=== PATIENT | female | born 1950 | race Caucasian/White ===

== ENCOUNTER 2018-12-23 00:02 | Emergency (ER) | payer SELFPAY ==
[~2018-12-23] VITALS: Ht 162.6 cm; Wt 65.0 kg
--- NOTE | 2018-12-23 00:14 | NUR ---
NIL X 1 WHEN CALLED FOR TRIAGE.
--- NOTE | 2018-12-23 00:45 | NUR ---
PT BACK TO ROOM
[2018-12-23] MEDS ORDERED: NITROGLYCERIN SINGLE TAB 0.4 MG SL PRN (01:00)
[2018-12-23] MEDS ORDERED: ACETAMINOPHEN 500 MG TABLET PO ONE (01:00)
[2018-12-23 01:15] LABS: BASOPHILS # (AUTO) 0.07 x10^3/uL (0-0.1); BASOPHILS % (AUTO) 1 % (0-1); EOSINOPHILS # (AUTO) 0.28 x10^3/uL (0-0.4); EOSINOPHILS % (AUTO) 4 % (1-7); LYMPHOCYTES % (AUTO) 37 % (22-44); MD NO; MEAN CORPUSCULAR HEMOGLOBIN 28.9 pg (27.0-34.8); MEAN CORPUSCULAR HGB CONC 32.4 g/dL (32.4-35.8); MEAN CORPUSCULAR VOLUME 89.2 fL (80-100); MEAN PLATELET VOLUME 8.8 fL (7.4-10.4); MONOCYTES # (AUTO) 0.65 x10^3/uL (0.2-0.8); MONOCYTES % (AUTO) 9 % (2-9); NEUTROPHILS # (AUTO) 3.52 x10^3/uL (1.8-6.8); NEUTROPHILS % (AUTO) 49 % (42-75); PLATELET COUNT 227 x10^3/uL (130-400); RED BLOOD COUNT 4.56 x10^6/uL (3.82-5.3); RED CELL DISTRIBUTION WIDTH 14.7 % (9.6-15.2)
[2018-12-23 01:18] LABS: ALANINE AMINOTRANSFERASE 117 U/L (12-78); ALBUMIN 3.3 g/dL (3.4-5.0); ANION GAP 7 mmol/L (5-15); CHLORIDE 110 mmol/L (98-107); CREATININE 0.89 mg/dL (0.55-1.02)
[2018-12-23 01:22] LABS: ALKALINE PHOSPHATASE 142 U/L (45-117); BILIRUBIN,TOTAL 0.1 mg/dL (0.2-1.0); TOTAL PROTEIN 6.2 g/dL (6.4-8.2); TROPONIN I 0.038 ng/mL (0.000-0.045)
--- NOTE | 2018-12-23 01:24 | NUR ---
PT TO US
[2018-12-23] MEDS ORDERED: NITROGLYCERIN SINGLE TAB 0.4 MG SL ONE (01:30)
[2018-12-23] MEDS ORDERED: ACETAMINOPHEN 500 MG TABLET ONE ×2 (01:31→01:32)
--- NOTE | 2018-12-23 01:33 | NUR ---
PT MEDCIATED PER EMAR. 5 RIGHTS ADDRESSED.
[2018-12-23 01:35] VITALS: BP 170/67
--- NOTE | 2018-12-23 02:28 | NUR ---
PT TO CTA
[2018-12-23] MEDS ORDERED: OMNIPAQUE 350 MG/ML, 100ML BOTTLE ONE (02:41)
[2018-12-23 02:48] LABS: AMPHETAMINE SCREEN, URINE Negative (Negative); BARBITURATE SCREEN, URINE Negative (Negative); BENZODIAZEPINE SCREEN, URINE Negative (Negative); CANNABINOID SCREEN, URINE Negative (Negative); COCAINE SCREEN, URINE Negative (Negative); METHADONE SCREEN, URINE Negative (Negative); OPIATE SCREEN, URINE Negative (Negative)
--- NOTE | 2018-12-23 03:40 | NUR ---
PT PROVIDED WITH DISCHARGE PAPERWORK AND IS TOLD SHE IS GOING TO BE DISCHARGED. PT BECAME AGITATED AND ASKED "WHY". SHE WAS TOLD ALL THE TESTS CAME BACK NORMAL AND SHE IS BEING DISCHARGED, SHE RESPONDS "I'M HOMELESS AND HAVE NO WHERE TO GO. I HAD TO CALL AN AMBULANCE TO BE ABLE TO COME HERE"
--- NOTE | 2018-12-23 04:27 | NUR ---
PT PROVIDED WITH TAXI VOUCHER TO SKILLED NURSING
--- NOTE | 2018-12-23 04:27 | NUR ---
Patient/Caregiver given discharge instructions and they have confirmed that they understand the instructions. Patient ambulatory with steady gait.
== END 2018-12-23 04:29 | disposition home or self-care (01) ==
LOC: ED 04:23
DX: R07.89 Other chest pain (principal); I10 Essential (primary) hypertension; E11.9 Type 2 diabetes mellitus without complications
CPT/HCPCS: 36415; 71045; 71275; 80053; 80307; 83690; 83880; 84484; 85025; 85379; 93005; 93971; 99284; Q9967